=== PATIENT | female | born 2000 | race African-American/Black ===

== ENCOUNTER 2025-01-09 19:02 | Emergency (ER) | payer BC, MEDICAID ==
[~2025-01-09] VITALS: Ht 154.9 cm; Wt 107.0 kg
--- NOTE | 2025-01-09 19:18 | ERN ---
ED Note History of Present Illness Stated Complaint: ABD PAIN Chief Complaint: Abdominal Pain in Time Seen by MD: 19:09 Dictation: PATIENT IS A 24-YEAR-OLD FEMALE HERE WITH COMPLAINTS OF LOWER ABDOMINAL PAIN ONSET WAS SEVERAL DAYS AGO. NO VAGINAL BLEEDING NO DISCHARGE NO FLANK PAIN. NO NAUSEA VOMITING NO DIARRHEA. SHE STATES SHE IS APPROXIMATELY EIGHT WEEKS , . SHE IS A PATIENT OF DR. MORALES HOWEVER HER 1ST APPOINTMENT IS 01/13. SHE IS TAKING VITAMINS. Allergies: Coded Allergies: No Known Drug Allergies (Unverified Allergy, Unknown, 03/15/24) Past Medical History Past Medical History: No Pertinent History Surgical History: Other Surgical History Other: ORAL History: Not Applicable LMP: Nov 15, 2024 : 1 Para: 0 Aborts: 0 RN Note Reviewed/Agreed w/PFSH: Yes Review of System Dictation CONSTITUTIONAL: NEGATIVE EXCEPT FOR HPI HEAD/FACE: NEGATIVE EXCEPT FOR HPI EENT: NEGATIVE EXCEPT FOR HPI RESPIRATORY: NEGATIVE EXCEPT FOR HPI GASTROINTESTINAL/ABDOMINAL: NEGATIVE EXCEPT FOR HPI LOWER PELVIC PAIN GENITOURINARY: NEGATIVE EXCEPT FOR HPI MUSCULOSKELETAL: NEGATIVE EXCEPT FOR HPI INTEGUMENTARY: NEGATIVE EXCEPT FOR HPI NEUROLOGICAL/PSYCH: NEGATIVE EXCEPT FOR HPI HEMATOLOGIC/LYMPHATIC: NEGATIVE EXCEPT FOR HPI ALL SYSTEMS NEGATIVE, EXCEPT NOTED ABOVE. 13 POINT REVIEW OF SYSTEMS ASSESSED AND ALL NEGATIVE EXCEPT FOR ABOVE. Initial Vital Sign VS Vital Signs Date Time Temp Pulse Resp B/P (MAP) Pulse Ox O2 Delivery O2 Flow Rate FiO2 01/09/25 19:03 98.2 85 20 106/65 100 Room Air 01/09/25 19:47 0 21 Physical Exam Dictation VITAL SIGNS REVIEWED GENERAL APPEARANCE: ALERT, ORIENTED X 3, NO ACUTE DISTRESS, WELL DEVELOPED, NOURISHED. HEAD AND FACE: NON-TRAUMATIC. EYES: PERRL, PINK CONJUNCTIVAS, EYELID NO TRAUMA, ANTERIOR CHAMBER WITH ARCUS SENILIS. EARS: PINNAS INTACT AND NO SIGNS OF TRAUMA OR ERYTHEMA EAR CANALS CLEAR AND NO DISCHARGE TM NO ERYTHEMA NOSE: NO DISCHARGE, NO BLEEDING. OROPHARYNX: MOUTH NORMAL, TONGUE PINK, PHARYNX CLEAR,NO ERYTHEMA, TONSILS NO EXUDATES, NO ABSCESSES NOTED, MUCOUS MEMBRANE MOIST NECK: SUPPLE, NON-TENDER, NO THYROMEGALY, NO MASSES, NO JVD, NO BRUITS BREAST:DEFERRED CHEST:NO TENDERNESS, NO CREPITUS, NO PARADOXICAL MOVEMENT, NO RETRACTIONS LUNGS:CLEAR, WELL-VENTILATED, SYMMETRIC, NO RALES, NO WHEEZING, NO RHONCHI, NO STRIDOR, GOOD BREATH SOUNDS BILATERALLY HEART: REGULAR RATE, REGULAR RHYTHM, NO MURMUR, NO GALLOPS VASCULAR: NO PERIPHERAL EDEMA, ABDOMEN: SOFT, POSITIVE BOWEL SOUNDS, NONDISTENDED, NO GUARDING, NONTENDER, NO REBOUND, NO MASSES NO HEPATOMEGALY, NO SPLENOMEGALY, NO BAUTISTA'S SIGN, NO HERNIAS. RECTAL: DEFERRED GENITAL: DEFERRED NEUROLOGICAL: NORMAL SPEECH, MOTOR FUNCTION INTACT, SENSORY FUNCTION INTACT MUSCULOSKELETAL: NECK NONTENDER, FULL RANGE OF MOTION, BACK NONTENDER, FULL RANGE OF MOTION, EXTREMITIES: NONTENDER, FULL RANGE OF MOTION SKIN: COLOR PINK, DRY, NO TURGOR, NO RASH, NO LACERATIONS, NO ABRASIONS, NO CONTUSIONS. LYMPHATIC: DEFERRED Results (Laboratory/Radiology) Laboratory/Radiology Laboratory Tests Test 01/09/25 20:20 White Blood Count 10.5 K/uL (4.8-10.8) Red Blood Count 4.72 MIL/uL (4.00-5.50) Hemoglobin 12.9 g/dL (12.0-16.0) Hematocrit 39.9 % (36-48) Mean Corpuscular Volume 84.5 fL (79-99) Mean Corpuscular Hemoglobin 27.3 pg (27.0-33.0) Mean Corpuscular Hemoglobin Concent 32.3 g/dL (32.0-36.0) Red Cell Distribution Width 13.4 % (11.0-15.5) Platelet Count 310 K/uL (130-400) Mean Platelet Volume 9.0 fL (7.5-10.5) Immature Granulocyte % (Auto) 0.5 % (0-1) Neutrophils (%) (Auto) 61.7 % (40.0-77.0) Lymphocytes (%) (Auto) 25.6 % (21.0-51.0) Monocytes (%) (Auto) 6.7 % (3.0-13.0) Eosinophils (%) (Auto) 5.1 % (0.0-8.0) Basophils (%) (Auto) 0.4 % (0.0-5.0) Neutrophils # (Auto) 6.5 K/uL (1.8-7.7) Lymphocytes # (Auto) 2.7 K/uL (1.0-4.8) Monocytes # (Auto) 0.7 K/uL (0.1-1.0) Eosinophils # (Auto) 0.54 K/uL (0.00-0.70) Basophils # (Auto) 0.04 K/uL (0.00-0.20) Absolute Immature Granulocyte (auto 0.05 K/uL (0-1) Nucleated Red Blood Cells 0.0 % (0.0-0.19) Sodium Level 134 mmol/L (136-145) L Potassium Level 3.4 mmol/L (3.5-5.1) L Chloride Level 99 mmol/L (101-111) L Carbon Dioxide Level 29 mmol/L (21-32) Blood Urea Nitrogen 7 mg/dL (7-18) Creatinine 0.8 mg/dL (0.5-1.0) Glomerular Filtration Rate Calc 105 mL/min (>90) Random Glucose 89 mg/dL (70-105) Total Calcium 8.9 mg/dL (8.5-10.1) Human Chorionic Gonadotropin, Quant 14819 mIU/mL (0-5) H OB ULTRASOUND DEMONSTRATES VIABLE IUP,7W3D, HEART TONES 152 Labs Reviewed?: Yes ED Course ED Course Orders Procedure Category Date Status Time Urinalysis Profile LAB 01/09/25 Logged 19:15 Cbc With Differential LAB 01/09/25 Complete 19:15 Hcg,Quantitative LAB 01/09/25 Complete 19:15 Us Ob <14 Weeks US 01/09/25 Resulted 19:15 Type And Screen BBK 01/09/25 Complete 19:15 Basic Metabolic Panel LAB 01/09/25 Complete 19:15 Acetaminophen 500mg PHA 01/09/25 Complete Tab (Tylenol 500mg T 19:30 Current Medications Medications (Trade) Dose Ordered Sig/Madhu Route PRN Reason Start Time Stop Time Status Last Admin Dose Admin Acetaminophen (TYLenol 500MG TAB) 1,000 mg ONCE ONCE PO 01/09/25 19:30 01/09/25 19:31 DC 01/09/25 20:33 Vital Signs Date Time Temp Pulse Resp B/P (MAP) Pulse Ox O2 Delivery O2 Flow Rate FiO2 01/09/25 19:47 98.2 85 20 106/65 100 Room Air* 0 21 01/09/25 19:03 98.2 85 20 106/65 100 Room Air 2140/patient states pain is reduced after Tylenol. Discharged home with the abdominal pain in Told to see primary care doctor take Tylenol only for pain until cleared by him. Medical Decision Making MDM Medical discharge making based on basic labs and OB ultrasound Labs unremarkable except for potassium 3.4 and replaced Patient given Tylenol for pain Ultrasound demonstrates viable IUP seven weeks three days Patient told to continue vitamins, take Tylenol [id number] only for pain See her obstetrics and gynecology professor doctor for follow up DX & DISP Disposition: Discharge Departure Impression: Primary Impression: Abdominal pain in Additional Impression: Hypokalemia Condition: Stable Additional Instructions: Follow-up with primary care provider in 1 to 2 days. Take medications as directed here in the emergency room. Okay to continue home medications unless otherwise discussed during your visit in the emergency room today. Return to your nearest emergency room if symptoms worsen or if there is no improvement. Call 911 if you need immediate assistance. Take Tylenol [id number] as needed and if no contraindications are present. Increase oral hydration. A wound culture or urine culture was ordered here in the emergency room department please follow-up with primary care provider and advise them to get repeat ports from our facility. If you had any Michael wrap/splints that were applied here, please do not remove them until you see your primary care or specialty. Continue vitamins, take Tylenol only for pain until cleared by your obstetrics and gynecology professor doctor. Referrals: NONE (PCP) Time of Disposition: 21:43 I have reviewed the case, and I agree with, Diagnosis and Plan MARCO ANTONIO GARDNER NP Jan 09, 2025 19:18
[2025-01-09 19:47] VITALS: BP 106/65; PULSE 85; RESP 20; TEMP 98.2; O2SAT 100
--- NOTE | 2025-01-09 20:25 | HMCIMG ---
US OB <14 WEEKS HISTORY: PELVIC PAIN WITHOUT VAGINAL BLEEDING NO DISCHARGE. EIGHT WEEKS/DR MORALES TECHNIQUE: Real-time pelvic ultrasound was performed. FINDINGS: Uterus measures 10.1 cm. heart rate 152 bpm and gestational age is 7 weeks and 2 days. Right ovary measures 4.6 cm and left ovary measures 2.8 cm, both with vascular flow. IMPRESSION: Single live IUP, as described.
[2025-01-09] MEDS: acetaMINOPHEN 500 MG TABLET PO ONE (20:33)
[2025-01-09 20:41] LABS: BASOPHILS # (AUTO) 0.04 K/uL (0.00-0.20); BASOPHILS % (AUTO) 0.4 % (0.0-5.0); EOSINOPHILS # (AUTO) 0.54 K/uL (0.00-0.70); EOSINOPHILS % (AUTO) 5.1 % (0.0-8.0); HEMATOCRIT 39.9 % (36-48); IMMATURE GRANULOCYTE ABSOLUTE 0.05 K/uL (0-1); LYMPHOCYTES # (AUTO) 2.7 K/uL (1.0-4.8); LYMPHOCYTES % (AUTO) 25.6 % (21.0-51.0); MEAN CORPUSCULAR HEMOGLOBIN 27.3 pg (27.0-33.0); MEAN CORPUSCULAR HGB CONC 32.3 g/dL (32.0-36.0); MEAN CORPUSCULAR VOLUME 84.5 fL (79-99); MONOCYTES # (AUTO) 0.7 K/uL (0.1-1.0); MONOCYTES % (AUTO) 6.7 % (3.0-13.0); NEUTROPHILS # (AUTO) 6.5 K/uL (1.8-7.7); NEUTROPHILS % (AUTO) 61.7 % (40.0-77.0); PLATELET COUNT (AUTO) 310 K/uL (130-400); RED BLOOD CELL COUNT(AUTO) 4.72 MIL/uL (4.00-5.50); RED CELL DISTRIBUTION WIDTH 13.4 % (11.0-15.5); WHITE BLOOD COUNT (AUTO) 10.5 K/uL (4.8-10.8)
[2025-01-09 20:49] LABS: CREATININE 0.8 mg/dL (0.5-1.0); POTASSIUM 3.4 mmol/L (3.5-5.1)
[2025-01-09] MEDS: PoTASSium BIcarbonate/CIT AC 25 MEQ TABLET.EFF PO ONE (21:51)
== END 2025-01-09 21:53 | disposition home or self-care (01) ==
LOC: EDH 19:02
DX: O26.891 Other specified pregnancy related conditions, first trimester (principal); R10.30 Lower abdominal pain, unspecified; E87.6 Hypokalemia; R10.2 Pelvic and perineal pain; Z3A.08 8 weeks gestation of pregnancy
CPT/HCPCS: 36415; 76801; 80048; 84702; 85025; 86850; 86900; 86901; 99284